=== PATIENT | male | born 1990 | race Asian ===

== ENCOUNTER 2019-11-22 14:38 | Outpatient (CLI) | payer BC, SELFPAY ==
--- NOTE | ~2019-11-22 | US_ITS ---
EXAMINATION: US scrotum doppler EXAM DATE: 11/22/2019 15:35 INDICATION: Left testicular pain for one year. TECHNIQUE: Multiple grayscale and Doppler images of the testicles and scrotum were obtained bilateral ly. There is no prior study for comparison. FINDINGS: Right testicle measures 3.3 x 2.1 x 2.3 cm and is morphologically normal. Low resistance Doppler shreya w confirmed. The epididymis is unremarkable. Small right-sided varicocele. No hydrocele. Left testicle measures 3.6 x 2.0 x 2.7 cm and is morphologically normal. Low resistance Doppler flow confirmed. The epididymis is unremarkable. There is no hydrocele or varicocele. IMPRESSION: 1. Small right varicocele. Reviewed, dictated and finalized at location B. [employer] IMPRESSION: 1. Small right varicocele.
== END 2019-11-22 14:39 | disposition home or self-care (01) ==
PROVIDERS: PCP Internal Medicine; Visit Provider Student in an Organized Health Care Education/Training Program
DX: I86.1 Scrotal varices (principal)
CPT/HCPCS: 76870; 93976

== ENCOUNTER 2021-12-09 22:59 | Emergency (ER) | payer OTHER, SELFPAY ==
--- NOTE | ~2021-12-09 | XR_ITS ---
EXAMINATION: XR foot LT min 3V DATE: 12/09/2021 23:45 INDICATION: Left foot injury and pain and swelling. TECHNIQUE: 4 views of left foot were obtained. COMPARISON: None. FINDINGS: Bone alignment is normal. No fracture. There is mild osteoarthritis of first metatarsophala ngeal joint and talonavicular joint. IMPRESSION: 1. Mild polyarticular osteoarthritis. Reviewed, dictated and finalized at location A.
[2021-12-09 23:02] VITALS: BP 152/80; PULSE 67; RESP 18; TEMP 36.6; O2SAT 100
--- NOTE | 2021-12-10 00:08 | ED_ITS ---
HPI - Extremity Injury (Lower) General Chief Complaint: Extremity Injury, Lower Stated Complaint: left foot injury Time Seen by Provider: 12/09/21 23:20 History of Present Illness HPI Narrative: 31-year-old male presents emergency room with complaints of left foot pain. Patient states that he was moving a grill when he dropped it onto his left foot. Review of Systems Review of Systems: CONSTITUTIONAL: Denies fever, chills, or sweats. EYES: Denies visual changes, redness, or discharge. ENT: Denies rhinorrhea, congestion, sore throat, or otalgia. CARDIOVASCULAR: Denies chest pain, palpitations, or edema. RESPIRATORY: Denies cough or dyspnea. GASTROINTESTINAL: Denies abdominal pain, nausea, vomiting, or diarrhea. GENITOURINARY: Denies dysuria or hematuria. SKIN: Denies rash or itching. MUSCULOSKELETAL: Left foot pain NEUROLOGIC: Denies headache, numbness, dizziness, or weakness. PSYCHIATRIC: Denies anxiety or depression. Exam Narrative: GENERAL: Well-appearing, well-nourished, and in no acute distress. HEAD: Normocephalic, atraumatic. EYES: PERRLA and EOMI. ENT: Nares clear, no rhinorrhea or epistaxis. Mucous membranes moist. NECK: Supple. No adenopathy or masses. No carotid bruits or JVD CHEST: Clear to auscultation. No respiratory distress. No wheezes rales or rhonchi HEART: Regular rate and rhythm. No murmur heard. Normal peripheral pulses. ABDOMEN: Soft, nontender, nondistended, normal active bowel sounds. EXTREMITIES: Normal range of motion. No edema. Left foot: Diffuse swelling. Tender to palpation over the dorsum of the midfoot. Ecchymosis present. No obvious bony abnormality SKIN: Warm, dry, no rash. Abrasion noted over the midfoot NEURO: No focal deficits. Alert and oriented x3. PSYCH: Normal mood and affect. Course Vital Signs Vital signs: Vital Signs Temperature 36.6 C 12/09/21 23:02 Pulse Rate 67 12/09/21 23:02 Respiratory Rate 18 12/09/21 23:02 Blood Pressure 152/80 H 12/09/21 23:02 Pulse Oximetry 100 12/09/21 23:02 Temperature 36.6 C 12/09/21 23:02 Pulse Rate 67 12/09/21 23:02 Respiratory Rate 18 12/09/21 23:02 Blood Pressure 152/80 H 12/09/21 23:02 Pulse Oximetry 100 12/09/21 23:02 MDM - Extremity Injury (Lower) MDM Narrative Medical decision making narrative: Plain films of the left foot show no acute bony abnormalities. Suspect foot contusion. Patient refused splint Medical Records Attestation: I reviewed the patient's medical records. Imaging Data Attestation: I personally reviewed and interpreted this imaging study as fol lows: My impression: No acute bony abnormality Discharge Plan Discharge Clinical Impression: Contusion of foot, left Patient Disposition: Home, Self-Care Condition: Stable Instructions: Antibiotic Form Additional Instructions: Recommend rest, applying ice for the first 48 hours after injury, wearing an Kunal bandage, and elevating extremity. May take anti-inflammatories as necessary. If you are still experiencing pain in the next 4 to 5 days, recommend following with orthopedics. Prescriptions: New naproxen 500 mg tablet 500 mg PO BID Qty: 20 RF: 0 Follow-up/Referrals: David,MD Luke [Primary Care Provider] - Stand Alone Forms: Work/School Release IP Time of Disposition: 00:48
[2021-12-10 01:05] VITALS: BP 131/72; PULSE 74; RESP 18; O2SAT 99
== END 2021-12-10 01:05 | disposition home or self-care (01) ==
PROVIDERS: Emergency Provider Nurse Practitioner Family; PCP Family Medicine
DX: S90.32XA Contusion of left foot, initial encounter (principal); W20.8XXA Other cause of strike by thrown, projected or falling object, initial encounter
CPT/HCPCS: 73630; 99283